=== PATIENT | male | born 1965 | race African-American/Black ===

== ENCOUNTER 2019-01-06 15:30 | Emergency (ER) | payer MEDICARE ==
[~2019-01-06] VITALS: Ht 177.8 cm; Wt 72.7 kg
[~2019-01-06 15:30] MED LIST: QUET25TA PO; RISP4TAB38 PO
[2019-01-06 15:45] VITALS: Ht 177.8 cm; Wt 72.7 kg
[2019-01-06] MEDS: RISPERIDONE 0.25 MG TAB PO SCH (22:20)
[2019-01-07] MEDS ORDERED: LORAZEPAM 1 MG TAB PO ONE ×2 (07:30→14:00)
[2019-01-07] MEDS: RISPERIDONE 0.25 MG TAB PO SCH ×2 (09:26→20:34)
[2019-01-07] MEDS ORDERED: OLANZAPINE (ODT) 5 MG TAB ODT ONE (14:00)
[2019-01-08] MEDS ORDERED: RISPERIDONE 1 MG TAB PO SCH (09:00)
[2019-01-08] MEDS ORDERED: OLANZAPINE (ODT) 5 MG TAB ODT ONE (09:30)
[2019-01-08 15:44] VITALS: BP 132/89; PULSE 74; RESP 20
== END 2019-01-08 16:08 | disposition home or self-care (01) ==
LOC: E/R 15:30 → EDBD 15:30 → E/R 01-08 16:08
DX: F20.9 Schizophrenia, unspecified (principal); F15.10 Other stimulant abuse, uncomplicated
CPT/HCPCS: 80053; 80307; 81003; 85025; 99283